=== PATIENT | female | born 2000 | race Caucasian/White ===

== ENCOUNTER 2022-03-19 11:14 | Emergency (ER) | payer OTHER ==
[~2022-03-19] VITALS: Ht 160 cm; Wt 52.4 kg
[2022-03-19 11:17] VITALS: BP 111/72
[2022-03-19] MEDS ORDERED: ONDANSETRON 4 MG ODT PO ONE (11:25)
--- NOTE | 2022-03-19 11:25 | NUR ---
FLU, COVID SWABS DONE.
--- NOTE | 2022-03-19 11:26 | NUR ---
PT AMB TO BED 12.
[2022-03-19] MEDS ORDERED: TAM75 PO (12:28)
[2022-03-19] MEDS ORDERED: ROB PO (12:28)
[2022-03-19] MEDS ORDERED: IBUP-1842 PO (12:28)
--- NOTE | 2022-03-19 12:40 | NUR ---
Patient discharged with v/s stable. Written and verbal after care instructions about influenza given and explained. Patient alert, oriented and verbalized understanding of instructions. Ambulatory with steady gait. All questions addressed prior to discharge. ID band removed. Patient advised to follow up with PMD. Rx of motrin, robitussin, tamiflu given. Patient educated on indication of medication including possible reaction and side effects. Opportunity to ask questions provided and answered.
== END 2022-03-19 12:40 | disposition home or self-care (01) ==
LOC: MED 11:14
DX: J10.1 Influenza due to other identified influenza virus with other respiratory manifestations (principal); Z20.822 Contact with and (suspected) exposure to COVID-19
CPT/HCPCS: 87426; 87804; 99283; Q0162

== ENCOUNTER 2022-08-27 12:49 | Emergency (ER) | payer OTHER ==
[~2022-08-27] VITALS: Ht 162.6 cm; Wt 58.1 kg
[~2022-08-27 12:49] MED LIST: IBUP-1842 PO; ROB PO; TAM75 PO
[2022-08-27 13:18] VITALS: BP 116/66
[2022-08-27] MEDS ORDERED: IBUP-2213 PO (15:23)
[2022-08-27 16:30] VITALS: BP 113/65
== END 2022-08-27 16:30 | disposition home or self-care (01) ==
LOC: MED 12:49
DX: S56.012A Strain of flexor muscle, fascia and tendon of left thumb at forearm level, initial encounter (principal); S66.811A Strain of other specified muscles, fascia and tendons at wrist and hand level, right hand, initial encounter; Z79.899 Other long term (current) drug therapy; W23.0XXA Caught, crushed, jammed, or pinched between moving objects, initial encounter; Y93.89 Activity, other specified; Y92.89 Other specified places as the place of occurrence of the external cause; Y99.8 Other external cause status
CPT/HCPCS: 73110; 73130; 99284

== ENCOUNTER 2023-05-04 14:10 | Emergency (ER) | payer OTHER ==
[~2023-05-04] VITALS: Ht 162.6 cm; Wt 66.2 kg
[~2023-05-04 14:10] MED LIST changes: +IBUP-2213 PO
[2023-05-04 14:21] VITALS: BP 108/64; PULSE 64; RESP 16; TEMP 97.2; O2SAT 99
[2023-05-04] MEDS ORDERED: CEPH-588 PO (14:52)
[2023-05-04] MEDS ORDERED: BACTO TP (14:52)
== END 2023-05-04 14:56 | disposition home or self-care (01) ==
LOC: MED 14:10
DX: L03.032 Cellulitis of left toe (principal); Z79.899 Other long term (current) drug therapy
CPT/HCPCS: 73660; 99283